=== PATIENT | male | born 1995 | race Caucasian/White ===

== ENCOUNTER 2017-06-14 21:14 | Emergency (ER) | payer OTHER ==
[2017-06-14] MEDS ORDERED: DIAZEPAM INJ 10 MG/2 ML DISP.SYRIN IM ONE (22:43)
--- NOTE | 2017-06-14 22:52 | ER Document Report ---
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 He states that he has pain in the left upper part of his neck, he is having pains on the side of his neck that feels like it radiates around the side of his face. Symptoms come and go. He denies nausea or vomiting, fever or chills, head injury, neck injury. He denies that his headache is severe. He states he was already evaluated at [facility] and told to keep a record of his headaches. He denies smoking, alcohol, or any recreational drugs. TRAVEL OUTSIDE OF THE [place] IN LAST 30 DAYS: No - Related Data Allergies/Adverse Reactions: No Known Allergies Allergy (Unverified 06/14/17 21:19) Past Medical History - General Information source: Patient - Social History Smoking Status: Never Smoker Drug Abuse: None Lives with: Alone Family History: Reviewed & Not Pertinent - Medical History Medical History: Negative Surgical Hx: Negative - Immunizations Immunizations up to date: Yes Hx Diphtheria, Pertussis, Tetanus Vaccination: Yes Review of Systems - Review of Systems Constitutional: No symptoms reported EENT: No symptoms reported Cardiovascular: No symptoms reported Respiratory: No symptoms reported Gastrointestinal: No symptoms reported Genitourinary: No symptoms reported Male Genitourinary: No symptoms reported Musculoskeletal: See HPI Skin: No symptoms reported Hematologic/Lymphatic: No symptoms reported Neurological/Psychological: See HPI Physical Exam - Vital signs Vitals: Temp Pulse Resp BP 97.9 F 50 L 14 123/83 06/14/17 21:27 06/14/17 21:27 06/14/17 21:27 06/14/17 21:27 Interpretation: Normal - General General appearance: Appears well, Alert In distress: None - Alert and well-appearing - HEENT Head: Normocephalic, Atraumatic Eyes: Normal Conjunctiva: Normal Extraocular movements intact: Yes Eyelashes: Normal Pupils: PERRL Nasal: Normal Mouth/Lips: Normal Mucous membranes: Normal Pharynx: Normal Neck: Normal - Respiratory Respiratory status: No respiratory distress Chest status: Nontender Breath sounds: Normal Chest palpation: Normal - Cardiovascular Rhythm: Regular, Bradycardia. No: Tachycardia Heart sounds: Normal auscultation, S1 appreciated, S2 appreciated Murmur: No - Abdominal Inspection: Normal Distension: No distension Bowel sounds: Normal Tenderness: Nontender. No: Tender, Guarding Organomegaly: No organomegaly - Back Back: Tender - Notably tender with reproducible tenderness over the left paracervical area up towards the base of the skull, no midline tenderness of the spine, normal upper and lower extremity range of motion, strength, distal neurovascular exam, no saddle anesthesia. - Extremities General upper extremity: Normal inspection, Nontender, Normal color, Normal ROM , Normal temperature General lower extremity: Normal inspection, Nontender, Normal color, Normal ROM , Normal temperature, Normal weight bearing. No: Michele's sign - Neurological Neuro grossly intact: Yes Cognition: Normal Orientation: AAOx4 Monica Coma Scale Eye Opening: Spontaneous Monica Coma Scale Verbal: Oriented Monica Coma Scale Motor: Obeys Commands [place] Coma Scale Total: 15 Speech: Normal Motor strength normal: LUE, RUE, LLE, RLE Sensory: Normal - Psychological Associated symptoms: Normal affect, Normal mood - Skin Skin Temperature: Warm Skin Moisture: Dry Skin Color: Normal Course - Re-evaluation Re-evalutation: Patient alert and well-appearing. Not reporting headache symptoms consistent with migraines. Normal neurological exam. Intermittent symptoms. Very tender in the paracervical muscles on the left side on the same side that he is having what is most likely tension headaches. Headache was not maximal in onset, no injury, fever, or concerning symptoms reported. Very low suspicion of subarachnoid hemorrhage, mass, meningitis, or venous sinus thrombosis. Patient will be treated for suspected tension headache, discussed neurology follow-up, discussed return precautions in detail. Patient states understanding and agreement. - Vital Signs Vital signs: Temp Pulse Resp BP Pulse Ox 98.2 F 70 20 132/76 H 97 06/14/17 23:15 06/14/17 23:15 06/14/17 23:15 06/14/17 23:15 06/14/17 23:15 Discharge - Discharge Clinical Impression: Neck pain Headache Qualifiers: Headache type: unspecified Headache chronicity pattern: acute headache Intractability: not intractable Qualified Code(s): R51 - Headache Condition: Stable Disposition: HOME, SELF-CARE Additional Instructions: Your examination and symptoms are consistent with a muscle spasm of the paracervical and trapezius muscle and likely tension headaches. He has been given a dose of diazepam, this is a benzodiazepine, but this is to help relax the tension in the muscle spasm. Take the Robaxin muscle relaxer as prescribed, apply heat to the area, take the Fioricet as prescribed for tension headache if needed. This should gradually progress and resolve with time. The Fioricet does have a small amount of butalbital in it for the headache, this is a barbiturate. If symptoms continue for a week follow-up with the neurology referral for additional evaluation and management. Return if you worsen including severe headache, vomiting, loss of vision, numbness, fever of 100.4 or greater, or any other concerning symptoms. Prescriptions: Butalb/Acetaminophen/Caffeine [Fioricet (50-325-40 mg) Tablet] 1 tab PO Q4HP PRN #30 tab PRN Reason: Methocarbamol [Robaxin 750 mg Tablet] 750 mg PO Q6 #20 tablet Referrals: LILLIAN FRANKEL MD [ACTIVE STAFF] - Follow up in 1 week
[2017-06-14 23:22] VITALS: BP 132/76
== END 2017-06-14 23:20 | disposition home or self-care (01) ==
LOC: ER 21:14
DX: R51 Headache (principal); M54.2 Cervicalgia
CPT/HCPCS: 99284; 96372; J3360

== ENCOUNTER 2018-04-16 19:15 | Emergency (ER) | payer OTHER ==
[2018-04-16] MEDS ORDERED: ASPIRIN 81 MG TABLET, CHEWABLE PO ONE (20:51)
--- NOTE | 2018-04-16 20:54 | ER Document Report ---
ED Medical Screen (RME) - General Chief Complaint: Chest Pain Stated Complaint: CHEST PAIN,SHORTNESS OF BREATH,NECK AND ARM PAIN Time Seen by Provider: 04/16/18 20:41 Notes: Patient is a 23-year-old male presents to the emergency department complaining of left sharp sided chest pain. Patient states the pain also sometimes radiates to his left arm. Patient states he was at the [facility] 3 days ago and was diagnosed with acid reflux and placed on Zantac. Patient states in the emergency room at the [facility] they gave him a GI cocktail which had numbed his mouth and throat but states did not help his chest pain at all. Patient states his chest pain has actually gotten worse since that diagnosis of GERD. Patient states he has been taking his Zantac as prescribed.0 Past medical history: None Medications: None Allergies: None Patient denies cocaine use, marijuana use, cigarette smoking, EtOH use. Physical exam: Lung sounds clear and equal all jimenez, chest pain anterior left chest which is non-reproducible upon deep palpation. I have greeted and performed a rapid initial assessment of this patient. A comprehensive ED assessment and evaluation of the patient, analysis of test results and completion of the medical decision making process will be conducted by additional ED providers. TRAVEL OUTSIDE OF THE [place] IN LAST 30 DAYS: No - Related Data Allergies/Adverse Reactions: No Known Allergies Allergy (Unverified 06/14/17 21:19) Past Medical History Renal/ Medical History: Denies: Hx Peritoneal Dialysis - Immunizations Immunizations up to date: Yes Hx Diphtheria, Pertussis, Tetanus Vaccination: Yes Physical Exam - Vital signs Vitals: Temp Pulse Resp BP Pulse Ox 98.1 F 58 L 16 139/86 H 98 04/16/18 19:26 04/16/18 19:26 04/16/18 19:26 04/16/18 19:26 18 19:26 Course - Vital Signs Vital signs: Temp Pulse Resp BP Pulse Ox 98.1 F 58 L 16 139/86 H 98 04/16/18 19:26 04/16/18 19:26 04/16/18 19:26 04/16/18 19:26 04/16/18 19:26
--- NOTE | 2018-04-16 21:20 | RADIOLOGY REPORT (SQ) ---
EXAM DESCRIPTION: XR CHEST 1 VIEW COMPLETED DATE/TME: 04/16/2018 20:51 CLINICAL HISTORY: 23 years, Male, cp Findings: Heart is not enlarged. No consolidation or pleural effusion. No pulmonary edema or pneumothorax. IMPRESSION: No acute disease.
[2018-04-16 21:34] LABS: ABSOLUTE BASOPHILS # (AUTO) 0.1 10^3/uL (0.0-0.2); ABSOLUTE EOSINOPHILS # (AUTO) 0.1 10^3/uL (0.0-0.6); ABSOLUTE LYMPHOCYTES (AUTO) 2.7 10^3/uL (0.5-4.7); ABSOLUTE MONOCYTES (AUTO) 0.5 10^3/uL (0.1-1.4); ABSOLUTE NEUT (AUTO) 3.1 10^3/uL (1.7-8.2); BASOPHILS % (AUTO) 0.8 % (0-2); HEMATOCRIT 43.9 % (37.9-51.0); HEMOGLOBIN 15.7 g/dL (13.5-17.0); LYMPHOCYTES % (AUTO) 41.5 % (13-45); MEAN CORPUSCULAR HEMOGLOBIN 32.2 pg (27.0-33.4); MEAN CORPUSCULAR HGB CONC 35.7 g/dL (32.0-36.0); MEAN CORPUSCULAR VOLUME 90 fl (80-97); MONOCYTES % (AUTO) 8.1 % (3-13); PLATELET COUNT 236 10^3/uL (150-450); RED BLOOD COUNT 4.86 10^6/uL (4.35-5.55); RED CELL DISTRIBUTION WIDTH 13.2 % (11.5-14.0); SEGMENTED NEUTROPHILS % (AUTO) 47.6 % (42-78); TOTAL CELLS COUNTED % (AUTO) 100 %; WHITE BLOOD COUNT 6.4 10^3/uL (4.0-10.5)
[2018-04-16 21:49] LABS: ALANINE AMINOTRANSFERASE 24 U/L (21-72); ALBUMIN 4.9 g/dL (3.5-5.0); ALKALINE PHOSPHATASE 57 U/L (38-126); ANION GAP 11 (5-19); ASPARTATE AMINO TRANSFERASE 23 U/L (17-59); BILIRUBIN,DIRECT 0.4 mg/dL (0.0-0.4); BILIRUBIN,TOTAL 0.5 mg/dL (0.2-1.3); BLOOD UREA NITROGEN 12 mg/dL (7-20); CALCIUM 9.9 mg/dL (8.4-10.2); CARBON DIOXIDE 28 mmol/L (22-30); CHLORIDE 102 mmol/L (98-107); CREATINE KINASE 96 U/L (55-170); GLUCOSE 95 mg/dL (75-110); POTASSIUM 3.8 mmol/L (3.6-5.0); TOTAL PROTEIN 7.6 g/dL (6.3-8.2)
[2018-04-16 22:00] LABS: CREATINE KINASE MB 0.33 ng/mL (<4.55)
[2018-04-16 22:06] LABS: TROPONIN I < 0.012 ng/mL
--- NOTE | 2018-04-16 22:34 | ER Document Report ---
ED General - General Chief Complaint: Chest Pain Stated Complaint: CHEST PAIN,SHORTNESS OF BREATH,NECK AND ARM PAIN Time Seen by Provider: 04/16/18 20:41 TRAVEL OUTSIDE OF THE [place] IN LAST 30 DAYS: No - HPI Notes: Patient is a 23-year-old male that presents to the emergency department for chief complaint of chest pain. Patient reports over the last week he has had increasing chest pain. He states it is epigastric and radiates up into his substernal chest. The pain is sharp and intermittent. He states he has been drinking more alcohol recently than usual. He does drink alcohol almost every other day. Patient also endorses recent increase in stressors at home and work. He denies any shortness of breath, palpitations, lightheadedness, nausea, vomiting, diaphoresis, abdominal pain. He denies any recent surgery, travel, or immobilizations. There is no family or personal history of DVT/PE or cardiac disease. Past Medical History: Negative Past Surgical History: Negative Social History: Frequent alcohol. Daily tobacco. Denies drug use. Family History: Reviewed and noncontributory for presenting illness Allergies: Reviewed, see documented allergy list. REVIEW OF SYSTEMS: CONSTITUTIONAL : No fever No chills No diaphoresis No recent illness EENT: No vision changes No congestion No sore throat CARDIOVASCULAR: chest pain No palpitations RESPIRATORY: No shortness of breath No cough No difficulty breathing GASTROINTESTINAL: abdominal pain No nausea No vomiting No diarrhea GENITOURINARY: No dysuria No hematuria No difficulty urinating MUSCULOSKELETAL: No back pain No leg pain No arm pain SKIN: No rashes No lesions LYMPHATIC: No swollen, enlarged glands. NEUROLOGICAL: No lightheadedness No headache No weakness No paresthesias PSYCHIATRIC: No anxiety No depression PHYSICAL EXAMINATION: Vital signs reviewed, nursing noted reviewed. GENERAL: Well-appearing, well-nourished and in no acute distress. HEAD: Atraumatic, normocephalic. EYES: Eyes appear normal, extraocular movements intact, sclera anicteric, conjunctiva are normal. ENT: nares patent, oropharynx clear without exudates. Moist mucous membranes. NECK: Normal range of motion, supple without lymphadenopathy LUNGS: Breath sounds clear to auscultation bilaterally and equal. No wheezes rales or rhonchi. HEART: Regular rate and rhythm without murmurs ABDOMEN: Soft, nontender, normoactive bowel sounds. No rebound, guarding, or rigidity. No masses appreciated. EXTREMITIES: Nontender, good range of motion, no pitting or edema. NEUROLOGICAL: No focal neurological deficits. Moves all extremities spontaneously Motor and sensory grossly intact on exam. PSYCH: Normal mood, normal affect. SKIN: Warm, Dry, normal turgor, no rashes or lesions noted on exposed skin - Related Data Allergies/Adverse Reactions: No Known Allergies Allergy (Unverified 06/14/17 21:19) Past Medical History - Social History Smoking Status: Former Smoker Chew tobacco use (# tins/day): Yes - 1 Frequency of alcohol use: Heavy Drug Abuse: None Family History: Reviewed & Not Pertinent Patient has suicidal ideation: No Patient has homicidal ideation: No Renal/ Medical History: Denies: Hx Peritoneal Dialysis - Immunizations Immunizations up to date: Yes Hx Diphtheria, Pertussis, Tetanus Vaccination: Yes Physical Exam - Vital signs Vitals: Temp Pulse Resp BP Pulse Ox 98.1 F 58 L 16 139/86 H 98 04/16/18 19:26 04/16/18 19:26 04/16/18 19:26 04/16/18 19:26 04/16/18 19:26 Course - Re-evaluation Re-evalutation: 04/16/18 22:33 Vitals reviewed. Nursing notes reviewed. Patient has no ischemic changes or dysrhythmia on EKG. Chest x-ray shows no pneumothorax or other acute cardiopulmonary process. His lab work is unremarkable. He is PERC negative and I do not suspect PE. Patient's pain has been associated with increased alcohol use and stress. His symptoms are likely related to acid reflux. He was counseled on dietary changes and will be started on omeprazole. He was also counseled on symptoms to return to the emergency room. Patient will follow with primary care in the next few days for reevaluation. He states he will try to cut back on his tobacco use. He is in agreement with this plan and stable at discharge. Laboratory 04/16/18 04/16/18 04/16/18 21:19 21:19 21:19 WBC 6.4 RBC 4.86 Hgb 15.7 Hct 43.9 MCV 90 MCH 32.2 MCHC 35.7 RDW 13.2 Plt Count 236 Seg Neutrophils % 47.6 Lymphocytes % 41.5 Monocytes % 8.1 Eosinophils % 2.0 Basophils % 0.8 Absolute Neutrophils 3.1 Absolute Lymphocytes 2.7 Absolute Monocytes 0.5 Absolute Eosinophils 0.1 Absolute Basophils 0.1 Sodium 141.0 Potassium 3.8 Chloride 102 Carbon Dioxide 28 Anion Gap 11 BUN 12 Creatinine 0.96 Est GFR ( Amer) > 60 Est GFR (Non-Af Amer) > 60 Glucose 95 Calcium 9.9 Total Bilirubin 0.5 Direct Bilirubin 0.4 Neonat Total Bilirubin Not Reportable Neonat Direct Bilirubin Not Reportable Neonat Indirect Bili Not Reportable AST 23 ALT 24 Alkaline Phosphatase 57 Creatine Kinase 96 CK-MB (CK-2) 0.33 Troponin I < 0.012 Total Protein 7.6 Albumin 4.9 Chest X-Ray 04/16/18 20:51 IMPRESSION: No acute disease. - Vital Signs Vital signs: Temp Pulse Resp BP Pulse Ox 98.1 F 58 L 16 139/86 H 98 04/16/18 19:26 04/16/18 19:26 04/16/18 19:26 04/16/18 19:26 04/16/18 19:26 - Laboratory Result Diagrams: 04/16/18 21:19 04/16/18 21:19 - EKG Interpretation by Me Additional EKG results interpreted by me: 04/16/18 22:33 Interpreted by myself 06/01/2007: Sinus bradycardia, rate 59, normal axis, no ectopy, no WPW, no Wellens , no Brugada, no ST elevation Discharge - Discharge Clinical Impression: Chest pain Qualifiers: Chest pain type: unspecified Qualified Code(s): R07.9 - Chest pain, unspecified GERD (gastroesophageal reflux disease) Qualifiers: Esophagitis presence: esophagitis presence not specified Qualified Code(s): K21.9 - Gastro-esophageal reflux disease without esophagitis Condition: Stable Disposition: HOME, SELF-CARE Instructions: Reflux Disease (GERD) ([facility]) Additional Instructions: Please return to the emergency department if you have any worsening, or concern of your symptoms. Please return to the emergency department if you develop chest pain, difficulty breathing, severe abdominal pain, or ongoing vomiting. Please follow-up with your primary care physician in 2-3 days and any other recommended physicians. If prescribed, take all medications as directed. If you have any questions or concerns do not hesitate to return the emergency department for evaluation. Avoid caffeine, tobacco, alcohol, chocolate, peppermint, spicy food, fatty foods and citric foods Prescriptions: Omeprazole 40 mg PO DAILY #30 capsule.
[2018-04-16 22:35] VITALS: BP 128/84
--- NOTE | 2018-04-17 07:38 | EKG REPORT ---
SEVERITY:- NORMAL ECG - SINUS RHYTHM : Confirmed by: Tyler De MD 17-Apr-2018 07:37:02
== END 2018-04-16 22:39 | disposition home or self-care (01) ==
LOC: ER 19:15
DX: R07.9 Chest pain, unspecified (principal); K21.9 Gastro-esophageal reflux disease without esophagitis; R06.02 Shortness of breath; M79.603 Pain in arm, unspecified; Z87.891 Personal history of nicotine dependence
CPT/HCPCS: 36415; 71045; 80053; 82550; 82553; 84484; 85025; 93005; 93010; 99285